=== PATIENT | female | born 1965 | race Caucasian/White ===

== ENCOUNTER 2023-08-11 05:55 | Day surgery (SDC) | payer BC, SELFPAY ==
[2023-08-11] VITALS (7 sets, daily range): BP systolic 95–138; BP diastolic 65–91; PULSE 47–71; RESP 16; TEMP 36.4–36.6; O2SAT 94–99; BMI 22.4
[2023-08-11] MEDS: SODIUM CHLORIDE 0.9 % (FLUSH) 10 ML SYRINGE IVF (06:15)
[2023-08-11] MEDS: LACTATED RINGERS 1000 ML 1,000 ML 100 ML IV ×2 (06:15→08:08)
--- NOTE | 2023-08-11 06:54 | W.PM.H&PU ---
History & Physical Update History & Physical Update H&P Reviewed and patient assessed: No changes noted
[2023-08-11] MEDS: MIDAZOLAM HCL 1 MG/ML inj IVP (07:08)
[2023-08-11] MEDS: fentaNYL 100 MCG/2 ML inj IVP (07:08)
--- NOTE | 2023-08-11 07:15 | CRLHL7_ITS ---
For Patients: As a result of the Cures Act, medical imaging exams and procedure reports are released immediately into your electronic medical record. You may view this report before your referring provider. If you have questions, please contact your health care provider. Indication: ORIF RT RADIUS Technique: Three fluoroscopic images of the right wrist. Fluoroscopic time 13.7 seconds. IMPRESSION: Fluoroscopic guidance for open reduction internal fixation of distal radial metaphyseal fracture. Dictated by Jose Hernandez MD @ 08/11/2023 8:33:02 AM (Electronically Signed)
--- NOTE | 2023-08-11 07:20 | SUR.PREOP ---
TIME?OUT:?704 PT/Kavya SALAZAR RN/Юлия RAMIRES, [employer]PERATOR/James BENITEZ MDA?VERIFICATION?OF?SURGICAL?SITE,?PROCEDURE,?AND?CONSENT OBTAINED?PRIOR?TO?INVASIVE?PROCEDURE.
[2023-08-11] MEDS: CEFAZOLIN 2 GM in 0.9 % SODIUM CHLORIDE Mini-bag 100 ML IVPB (07:24)
--- NOTE | 2023-08-11 08:07 | P.ORPRC_ITS ---
Procedure Note Date of procedure: 08/11/23 Procedure: PREOPERATIVE DIAGNOSES: 1. Right distal radius fracture intra-articular, comminuted, 3+ parts, dorsally angulated and displaced POSTOPERATIVE DIAGNOSES: 1. Right distal radius fracture intra-articular, comminuted, 3+ parts, dorsally angulated and displaced NAME OF OPERATION: 1. Right distal radius open reduction with internal fixation of intraarticular fracture (3+ parts) 2. 34928 - intraoperative fluoroscopy up to 1 hour. SURGEON: David Kim MD GRAIN UNLOADER: Evan Ch Pac - Of note, an high school assistant football coach was critical for this case to aide in patient positioning, limb manipulation, tissue retraction, closure, and splinting. ANESTHESIA: Supraclavicular block + MAC IMPLANTS: Synthes dual column volar locking plate (with 1.8 mm distal locking pegs and 2.4/2.7 mm locking and nonlocking screw for the shaft) TOURNIQUET: 28 minutes at 250 torr. INDICATIONS: The patient is a pleasant, 58-year-old female who sustained a right wrist injury after a fall. They had difficulty with use of the extremity and deformity. Workup included xrays which revealed an displaced, angulated fracture with 3+ parts. Given these findings, surgery was recommended to improve the alignment and stablize the fracture. FINDINGS: Closed, comminuted, displaced, and angulated distal radius metaphyseal fracture with intra-articular extension and 3 fragments. PROCEDURE: Following a thorough discussion of risks, benefits, and alternatives, consent was obtained and the operative extremity was marked. The patient was brought to the operating room and placed supine on the operating table. Induction of anesthesia was achieved. Appropriate time out was performed identifying proper patient, site and procedure. 1 gram of iv Ancef was administered within 1 hour of incision preoperatively. The right upper extremity was prepped and draped in the appropriate sterile fashion using ChloraPrep prep. The limb was exsanguinated and the tourniquet inflated. A longitudinal incision was made overlying the FCR tendon. Sharp incision through skin and subcutaneous tissue allowed identification of the FCR tendon. The superficial sheath was sharply divided, the tendon retracted ulnarly, and the deep fascial sheath also released. The FPL was retracted ulnarly and the pronator quadratus was sharply released from the radial border of the radius and subperiosteally elevated. The fracture was encountered and cleared of interposed periosteum / fracture hematoma. A reduction was performed and the appropriate plate selected. Temporary stabilization allowed C-arm fluoroscopy to confirm proper fracture reduction and plate positioning. The oblong hole was filled with a nonlocking screw followed by multiple distal locking pegs being careful to keep these in subchondral bone and extraarticular. Finally, the remaining proximal shaft screws were drilled and placed. Fluoroscopic imaging confirmed the improved position and showed the fracture to be stable. At this stage, the wound was thoroughly irrigated with normal saline. Closure performed with 0 Vicryl for the pronator quadratus, followed by deflation of the tourniquet. All major bleeding points were cauterized. Closure was then completed with 3-0 Vicryl for the subcutaneous, and 4-0 statafix for subcuticular closure. Dressings were applied along with a volar/dorsal splint. The patient was awoken from anesthesia and transferred to PACU in stable condition. PLAN: 1. Elevate operative extremity. 2. Ice, acetominphen or ibuprofen PRN. 3. Oxycodone for pain as needed. 4. Follow up with me in 7-14 days for wound check and splint removal and t ransition to a cast allowing the fingers to move. Total mobilization x3 weeks. Therefore, follow-up at the 3 week barbara with me for cast removal, brace, and OT referral.
--- NOTE | 2023-08-11 08:38 | P.NB_ITS ---
Nerve Block Nerve Block Time Seen by Provider: 07:11 Date Seen: 08/11/23 Type of block requested by surgeon for post-operative analgesia: axillary Time out performed: Yes Verification of patient name: Yes Verification of date of : Yes Site marking: site marked Name of person performing procedure: Juaquin Continuous monitoring Was continuous monitoring of O2 sat, B/P, hospital monitor, recorded every 15 minutes?: Yes Procedure Checklist: sterile prep, needles and gloves Ultrasound guided. Images saved: Yes Medications given in 5ml increments after negative aspiration: Ropivicaine %: 0.5 mL: 30 Needle gauge: 22 Decadron (mg): 10 Precedex (mcg): 25 Patient tolerated procedure well: Yes Additional comments: Needle noted adjacent to nerve Block Charges Block Charge (with Pro Fee): Brachial Plexus Use of Ultrasound Machine for Block: Yes- US Guidance/pain block
--- NOTE | 2023-08-11 08:45 | W.ANESCHARGE ---
Anesthesia Charges Start Date/Time Anesthesia Start Date: 08/11/23 Anesthesia Start Time: 07:17 Stop Date/Time Anesthesia Stop Date: 08/11/23 Anesthesia Stop Time: 08:43
== END 2023-08-11 09:58 | disposition home or self-care (01) ==
PROVIDERS: PCP Physician Assistant Medical; Visit Provider Orthopaedic Surgery Sports Medicine
PROC: (CPT 25575; principal; 2023-08-11 07:15)
DX: S52.571A Other intraarticular fracture of lower end of right radius, initial encounter for closed fracture (principal); G89.18 Other acute postprocedural pain
CPT/HCPCS: 25609; 01830; 64415; 73110; 76000; 76942; A4580; C1713; J0690; J1100; J2250; J2405; J2704; J2795; J3010; J7120

== ENCOUNTER 2023-11-23 16:00 | Outpatient (RCR) | payer BC, SELFPAY | END 2023-11-24 12:31 | disposition home or self-care (01) | PROVIDERS: PCP Physician Assistant Medical; Visit Provider Physician Assistant Surgical | DX: S62.101A Fracture of unspecified carpal bone, right wrist, initial encounter for closed fracture (principal); Z98.890 Other specified postprocedural states; Z51.89 Encounter for other specified aftercare | CPT/HCPCS: 97033; 97110; 97140; 97165; L3906; X5282 ==